=== PATIENT | female | born 1970 ===

== ENCOUNTER 2020-09-13 10:35 | Outpatient (REF) | payer BC, SELFPAY | END 2020-09-13 10:36 | disposition home or self-care (01) | LOC: HO.WFDLDS 10:35 | PROVIDERS: PCP Hospitalist; Visit Provider Internal Medicine | DX: Z20.828 Contact with and (suspected) exposure to other viral communicable diseases (principal) | CPT/HCPCS: C9803; U0003 ==

== ENCOUNTER 2023-02-01 02:18 | Inpatient (IN) | payer BC, SELFPAY ==
--- OUTSIDE RECORDS SUMMARY | 2023-02-01 02:21 | XMS_ITS | Continuity of Care Document ---
Author Name Unknown Organization [facility] Dimitri Divvyshot Parudi Address [address], [address] [place] [address]- Care Team Providers Care Business Management Manager Name Role Phone Lena SEARS, Myra Ratliff Primary Care Physician [phone] [place] [facility] [place](s): 12/28/20 - 01/04/21 [facility] [address], [address] [place] [address]- Attending Physician: Александр FRANKLIN, Mandeep Williamson Referring Physician: Myra Paredes NP Allergies, Adverse Reactions, Alerts Substance Reaction Severity Status sulfADIAZINE Active Nuts Active levoFLOXacin Active Immunizations Given and Recorded Vaccine Date Status Refusal Reason Hepatitis A Adult Vaccine 09/20/16 Given Hepatitis A Adult Vaccine 12/08/15 Given diphtheria-tetanus toxoids (DT) 12/29/98 Given Medications Ativan 0.5 mg oral tablet 0.5 tablet = 0.25 mg, By Mouth, Once, take 30 min prior to MRI procedure . may repeat dose in 45 min if needed. Do not drive after taking med/have someone else drive you, # 2 tablet, 0 Refills, Soft Stop, 12/24/17 13:58:41 EDT, Tablet Start Date: 12/24/17 Status: Ordered indomethacin 25 mg oral capsule 2 capsule = 50 mg, By Mouth, 3 times a day, PRN for gout pain, # 21 capsule, 0 Refills, Maintenance, 06/14/20 13:24:00 EDT, Capsule, [id number], 153, cm, 06/14/20 11:05:00 EDT, Height, 95, kg, 06/14/20 11:05:00 EDT, Dry Weight Start Date: 06/14/20 Status: Ordered Latuda 80 mg oral tablet 1 tablet = 80 mg, By Mouth, Daily, 0 Refills, Maintenance, 12/24/17 12:55:11 EDT Start Date: 12/24/17 Status: Ordered Mirena 52 mg intrauteral device 1 each = 52 mg, Once, Inserted 03/2016, 0 Refills, Maintenance, 12/08/15 9:44:34 Start Date: 12/08/15 Status: Ordered TEGretol 200 mg oral tablet 200 mg, 1, tablet, By Mouth, 2 times a day, Refills 0, Maintenance, 12/24/17 12:55:26 EDT Start Date: 12/24/17 Status: Ordered Problem List Condition Effective Dates Status Health Status Inform ant Abnormal weight gain(Confirmed) Active Anxiety(Confirmed) Active Bipolar 1 disorder(Confirmed) Active IUD (intrauterine device) in place(Confirmed) Active Depression(Confirmed) Active Headache(Confirmed) Active Hypercholesterolemia(Confirmed) Active Hyperglycemia(Confirmed) Active Hyperlipidemia(Confirmed) Active Joint pain(Confirmed) Active Muscular aches(Confirmed) Active Influenza vaccine needed(Confirmed) Active Obesity due to excess calories(Confirmed) Active control(Confirmed) Active Routine Gynecological Examination(Confirmed) Active Right shoulder pain(Confirmed) Active Urgency incontinence(Confirmed) Active Social History Social History Type Response Smoking Status Never smoker entered on: 04/13/16 Sex
--- OUTSIDE RECORDS SUMMARY | 2023-02-01 02:21 | XMS_ITS | Continuity of Care Document ---
Author Name Unknown Organization [facility] Medicine Address [address] [place] [address]- Care Team Providers Care Journeyman Plumber Name Role Phone Saran FRANKLIN, Nissa Larsen Primary Care Physician [phone] [place] [facility] [place] 10/13/21 [facility] Medicine [address] [place] [address]- Attending Physician: Jose Ivey MD Admitting Physician: Jose Ivey MD Referring Physician: Imani SEARS, Vandana Kee Allergies, Adverse Reactions, Alerts Substance Reaction Severity Status sulfADIAZINE Active Nuts Active levoFLOXacin Active Immunizations Given and Recorded Vaccine Date Status Refusal Reason Hepatitis A Adult Vaccine 09/20/16 Given Hepatitis A Adult Vaccine 12/08/15 Given diphtheria-tetanus toxoids (DT) 12/29/98 Given Medications aspirin 81 mg oral capsule 4 capsule = 324 mg, By Mouth, Every 4 hours, 0 Refills, Maintenance, 08/26/21 9:02:00 EST, Partial fill upon patient request if the prescription is for a schedule II opioid drug. Start Date: 08/26/21 Status: Ordered Ativan 0.5 mg oral tablet 0.5 tablet [...] 0 Refills, Maintenance, 06/14/20 13:24:00 EDT, Capsule, [facility] #[id number], 153, cm, 06/14/20 11:05:00 EDT, Height, 95, kg, 06/14/20 11:05:00 EDT, Dry Weight Start Date: 06/14/20 Status: Ordered Latuda 80 mg oral tablet 1 tablet = 80 mg, By Mouth, Daily, 0 Refills, Maintenance, 12/24/17 12:55:11 EDT Start Date: 12/24/17 Status: Ordered losartan 50 mg oral tablet 50 mg, 1, tablet, By Mouth, Daily, Refills 0, Maintenance, 08/26/21 9:03:00 EST, Partial fill upon patient request if the prescription is for a schedule II opioid drug. Start Date: 08/26/21 Status: Ordered metFORMIN 500 mg oral tablet 1 tablet = 500 mg, By Mouth, 2 times a day, # 60 tablet, 0 Refills, Maintenance, 05/31/21 18:26:00 EDT, Tablet, [facility]/pharmacy #[id number], Partial fill upon patient request if the prescription is for a schedule II opioid drug., 152.5, cm, 05/31/21 11:59:00 E... Start Date: 05/31/21 Stop Date: 06/30/21 Status: Ordered Mirena 52 mg intrauteral device 1 each = 52 mg, Once, Inserted 03/2016, 0 Refills, Maintenance, 12/08/15 9:44:34 Start Date: 12/08/15 Status: Ordered rosuvastatin 10 mg oral capsule 1 capsule = 10 mg, By Mouth, Daily, 0 Refills, Maintenance, 08/26/21 9:02:00 EST, Partial fill uponpatient request if the prescription is for a schedule II opioid drug. Start Date: 08/26/21 Status: Ordered TEGretol 200 mg oral tablet 200 mg, 1, tablet, By Mouth, 2 times a day, Refills 0, Maintenance, 12/24/17 12:55:26 EDT Start Date: 12/24/17 Status: Ordered Problem List Condition Effective Dates Status Health Status Inform ant Abnormal weight gain(Confirmed) Active Anxiety(Confirmed) Active Bipolar 1 disorder(Confirmed) Active IUD (intrauterine device) in place(Confirmed) Active Depression(Confirmed) Active Diabetes(Confirmed) Active Headache(Confirmed) Active Hypercholesterolemia(Confirmed) Active Hyperglycemia(Confirmed) Active Hyperlipidemia(Confirmed) Active Irregular uterine bleeding(Confirmed) Active Joint pain(Confirmed) Active Muscular aches(Confirmed) Active Influenza vaccine needed(Confirmed) Active Obesity due to excess calories(Confirmed) Active control(Confirmed) Active Routine Gynecological Examination(Confirmed) Active Severe obesity(Confirmed) Active Right shoulder pain(Confirmed) Active Urgency incontinence(Confirmed) Active Social History Social History Type Response Smoking Status Never smoker entered on: 04/13/16 Sex
--- OUTSIDE RECORDS SUMMARY | 2023-02-01 02:21 | XMS_ITS | Continuity of Care Document ---
Author Name Unknown Organization [facility] [place] Address [address] [place] [address]- Care Team Providers Care Storm Chaser Name Role Phone Nissa Noonan MD Primary Care Physician Encounter 09/30/21 - 10/07/21 [facility] [place] [address], [address] [place] [address]- Attending Physician: Nissa Noonan MD Admitting Physician: Nissa Noonan MD Referring Physician: Nissa Noonan MD Allergies, Adverse Reactions, Alerts Substance Reaction Severity [...] 0 Refills, Maintenance, 06/14/20 13:24:00 EDT, Capsule, [facility] #[id number], 153, cm, 06/14/20 11:05:00 EDT, Height, 95, [...] 0 Refills, Maintenance, 05/31/21 18:26:00 EDT, Tablet, [facility]/pharmacy #[id number], Partial fill upon patient request if [...]
--- OUTSIDE RECORDS SUMMARY | 2023-02-01 02:21 | XMS_ITS | Continuity of Care Document ---
Author Name Unknown Organization [facility] ter Address [address] [place] [address]- Care Team Providers Care Brood Station Manager Name Role Phone Nissa Noonan MD Primary Care Physician [phone] [place] [facility] [place] - 01/01/[address] [address] Allergies, Adverse Reactions, Alerts Substance Reaction Severity [...] 0 Refills, Maintenance, 06/14/20 13:24:00 EDT, Capsule, [facility] #[id number], 153, cm, 06/14/20 11:05:00 EDT, Height, 95, kg, 06/14/20 11:05:00 EDT, Dry Weight Start Date: 06/14/20 Status: Ordered Latuda 80 mg oral tablet 1 tablet = 80 mg, By Mouth, Daily, 0 Refills, Maintenance, 12/24/17 12:55:11 EDT Start Date: 12/24/17 Status: Ordered Liletta 52 mg intrauterine device 1 each = 52 mg, Once, 0 Refills, Maintenance, 10/18/21 11:53:00 EST, Partial fill upon patient request if the prescription is for a schedule II opioid drug. Start Date: 10/18/21 Status: Ordered losartan 50 mg oral tablet [...] 0 Refills, Maintenance, 05/31/21 18:26:00 EDT, Tablet, [facility]/pharmacy #[id number], Partial fill upon patient request if [...]
--- OUTSIDE RECORDS SUMMARY | 2023-02-01 02:21 | XMS_ITS | Continuity of Care Document ---
Author Name Unknown Organization [facility] [employer]ion [employer] Address [address], 4[address] [place] [address]- Care Team Providers Care Melon Packer Name Role Phone Lena SEARS, Myar Ratliff Primary Care Physician [phone] En[place] [facility] [place] Date(s): 12/28/20 - 01/27/21 [facility] [employer] [facility] [address] [place] [address]- Attending Physician: Castillo Guevara Admitting Physician: Castillo Guevara Referring Physician: AdmtrCastillo Allergies, Adverse Reactions, Alerts Substance Reaction Severity [...] 0 Refills, Maintenance, 06/14/20 13:24:00 EDT, Capsule, [facility] #[id number], 153, cm, 06/14/20 11:05:00 EDT, Height, 95, [...]
--- OUTSIDE RECORDS SUMMARY | 2023-02-01 02:21 | XMS_ITS | Continuity of Care Document ---
Author Name Unknown Organization [facility] [place] Address [address] [facility] [place] [address]- Care Team Providers Care Breaker Hand Name Role Phone Nissa Noonan MD Primary Care Physician [phone] Encounter 06/20/21 - 09/03/21 [facility] [address], [address] [place] [address]- Attending Physician: Nissa Noonan MD Admitting Physician: [...] EDT, Tablet Start Date: 12/24/17 Status: Ordered Flagyl 500 mg oral tablet 1 tablet = 500 mg, By Mouth, 3 times a day, for 7 days, # 21 tablet, 0 Refills, Acute 09/06/21 13:04:00 EST, 08/30/21 13:04:00 EST, Tablet, [facility]/pharmacy #[id number], Partial fill upon patient request if the prescription is for a schedule II opioid drug., 15... Start Date: 08/30/21 Stop Date: 09/06/21 Status: Ordered indomethacin 25 mg oral capsule 2 capsule = 50 mg, By Mouth, 3 times a day, PRN for gout pain, # 21 capsule, 0 Refills, Maintenance, 06/14/20 13:24:00 EDT, Capsule, [facility] #[id number], 153, cm, 06/14/20 11:05:00 EDT, Height, 95, [...] 0 Refills, Maintenance, 05/31/21 18:26:00 EDT, Tablet, [facility]/pharmacy #[id number], Partial fill upon patient request [...]
--- OUTSIDE RECORDS SUMMARY | 2023-02-01 02:21 | XMS_ITS | Continuity of Care Document ---
Author Name Unknown Organization [facility] Address [address] [facility] [place] [address]- Care Team Providers Care Shoe Singer Name Role Phone Nissa Noonan MD Primary Care Physician Encounter 09/20/21 - 09/27/21 [facility] [place] [address] [facility], [address] [place] [address]- Attending Physician: Nissa Noonan MD Admitting Physician: [...] 0 Refills, Maintenance, 06/14/20 13:24:00 EDT, Capsule, [id number], 153, cm, 06/14/20 11:05:00 EDT, Height, 95, [...] Refills, Maintenance, 05/31/21 18:26:00 EDT, Tablet, [facility]/pharmacy #[id number], Partial fill upon patient request if [...]
--- OUTSIDE RECORDS SUMMARY | 2023-02-01 02:21 | XMS_ITS | Continuity of Care Document ---
Author Name Unknown Organization [facility] Address [address] [facility] [place] [address]- Care Team Providers Care Lithographic Press Operator Name Role Phone Nissa Noonan MD Primary Care Physician Encounter 11/08/22 - 12/21/22 [facility] [place] [address], [address] [place] [address]- Attending Physician: Александр FRANKLIN, Mandeep Williamson Admitting Physician: Александр FRANKLIN, Mandeep Williamson Referring Physician: Александр FRANKLIN, Mandeep Williamson Allergies, Adverse Reactions, Alerts Substance Reaction Severity [...] EDT, Tablet Start Date: 12/24/17 Status: Ordered Latuda 80 mg oral tablet [...] Refills, Maintenance, 05/31/21 18:26:00 EDT, Tablet, [facility]/pharmacy #[id number], Partial fill upon patient request if [...] Date: 12/24/17 Status: Ordered Problem List Condition Confirmation Course Effective Dates Status Health Status Informant Abnormal weight gain Confirmed Active Anxiety Confirmed Active Bipolar 1 disorder Confirmed Active IUD (intrauterine device) in place Confirmed Active Depression Confirmed Active Diabetes Confirmed Active Headache Confirmed Active Hypercholesterolemia Confirmed Active Hyperglycemia Confirmed Active Hyperlipidemia Confirmed Active Irregular uterine bleeding Confirmed Active Joint pain Confirmed Active Muscular aches Confirmed Active Influenza vaccine needed Confirmed Active Obese class II Confirmed Active Obesity due to excess calories Confirmed Active control Confirmed Active Routine Gynecological Examination Confirmed Active Right shoulder pain Confirmed Active Urgency incontinence Confirmed Active Social History Social History Type Response Smoking Status Never smoker entered on: 04/13/16 Sex Patient Care team information Care Team Personnel Name: Nissa Noonan MD Position: [facility] Outreach Member Role: PCP Address: Address: [address] [place] [address]- [place] Name: Александр FRANKLIN, Mandeep Williamson Position: [facility] OPERATIONS MANAGER ASSISTANT Member Role: Lifetime OPERATIONS MANAGER ASSISTANT Physician Address: Address: [address] [place] [address]'s [facility] [place] [address]- Care Team Related Persons Name: [address] Address: [place] [address] Name: ROBB NIXON Address: home [address], [address] [place] [address] Name: GLENN THOMAS Address: home [address] [place] [address]
--- OUTSIDE RECORDS SUMMARY | 2023-02-01 02:21 | XMS_ITS | Continuity of Care Document ---
Author Name Unknown Organization [facility] [place] Address [address] [facility] [place] [address]- Care Team Providers Care Derrick Boat Lever Operator Name Role Phone Nissa Noonan MD Primary Care Physician [phone] Encounter 09/19/21 - 10/20/21 [facility] [place] [address], [address] [place] [address]- Attending Physician: Nissa Noonan MD Admitting Physician: [...] 0 Refills, Maintenance, 06/14/20 13:24:00 EDT, Capsule, [facility][id number], 153, cm, 06/14/20 11:05:00 EDT, Height, 95, [...] 0 Refills, Maintenance, 05/31/21 18:26:00 EDT, Tablet, [facility]/pharmacy #[id number], Partial fill upon patient request if [...]
--- OUTSIDE RECORDS SUMMARY | 2023-02-01 02:21 | XMS_ITS | Continuity of Care Document ---
Author Name Unknown Organization [facility] Medicine Address [address] [place] [address]- Care Team Providers Care Fur Ironer Name Role Phone Saran FRANKLIN, Nissa Larsen Primary Care Physician En[place] [facility] [place] Date(s): 09/13/21 - 10/13/21 [facility] Medicine [address] [place] [address]- Attending Physician: Castillo Guevara Admitting Physician: Castillo [...] 0 Refills, Maintenance, 06/14/20 13:24:00 EDT, Capsule, [id number], 153, cm, 06/14/20 11:05:00 EDT, Height, 95, [...] 0 Refills, Maintenance, 05/31/21 18:26:00 EDT, Tablet, [id number], Partial fill upon patient request if [...]
--- OUTSIDE RECORDS SUMMARY | 2023-02-01 02:21 | XMS_ITS | Continuity of Care Document ---
Author Name Unknown Organization [facility] Medicine Address [address] [place] [address]- Care Team Providers Care Senior Medical Transcriptionist Name Role Phone Saran FRANKLIN, Nissa Larsen Primary Care Physician [phone] En[place] [facility] [place] Date(s): 06/01/21 - 07/01/21 [facility] Medicine [address] [place] [address]- Allergies, Adverse Reactions, Alerts Substance Reaction Severity [...] 0 Refills, Maintenance, 06/14/20 13:24:00 EDT, Capsule, [facility] #[id number], 153, cm, 06/14/20 11:05:00 EDT, Height, 95, kg, 06/14/20 11:05:00 EDT, Dry Weight Start Date: 06/14/20 Status: Ordered Latuda 80 mg oral tablet 1 tablet = 80 mg, By Mouth, Daily, 0 Refills, Maintenance, 12/24/17 12:55:11 EDT Start Date: 12/24/17 Status: Ordered metFORMIN 500 mg oral tablet 1 tablet = 500 mg, By Mouth, 2 times a day, # 60 tablet, 0 Refills, Maintenance, 05/31/21 18:26:00 EDT, Tablet, [facility]/pharmacy #[id number], Partial fill upon patient [...]
--- NOTE | 2023-02-01 03:07 | PC.NURSE ---
PT SIGNED A 3 DAY NOTICE ON Sunday02/01/23. UP ON Sunday02/06/23.
[2023-02-01 03:44] VITALS: BMI 30.2
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
--- NOTE | 2023-02-01 06:43 | HE.PHANOTE ---
Addendum entered by Sagar Pantoja formerly [facility] 02/02/23 13:54: PT NOT ON LATUDA ANYMORE Original Note: RE METFORMIN PATIENT DOES HAVE METFORMIN 500MG ON THEIR FILE, BID
[2023-02-01 07:00] VITALS: BMI 42.6
[2023-02-01 08:10] VITALS: BP 192/94; PULSE 92; RESP 18; TEMP 35.9; O2SAT 94
[2023-02-01] MEDS: metFORMIN HCl 1,000 MG TABLET 1000 MG PO ×2 (08:16→19:59)
[2023-02-01] MEDS: Aspirin Enteric Coated 81 MG TABLET.DR PO (08:16)
[2023-02-01] MEDS: carBAMazepine 200 MG TABLET PO (08:16)
--- NOTE | 2023-02-01 09:00 | ECG_ITS ---
Test Reason : dr order Blood Pressure : / mmHG Vent. Rate : 066 BPM Atrial Rate : 066 BPM P-R Int : 144 ms QRS Dur : 080 ms QT Int : 394 ms P-R-T Axes : 040 033 072 degrees QTc Int : 413 ms Normal sinus rhythm Nonspecific T wave abnormality Abnormal ECG No previous ECGs available Referred By: Lorraine Souza Electronically Signed By:Igor Lucia
[2023-02-01] MEDS: Losartan Potassium 50 MG TABLET PO (11:07)
[2023-02-01] MEDS: Butalb/Acetamin/Caff 50/325/40 TABLET 1 TAB PO (11:08)
[2023-02-01] MEDS: OLANZapine 5 MG TABLET PO (11:08)
--- NOTE | 2023-02-01 11:32 | P.CONHOSP_ITS ---
History of Present Illness Data of Consult Service Date: 02/01/23 Primary Care Provider: Unknown Physician HPI Reason for consult: Admission H&P Pt is a 52-year-old female with a PMH significant for?nephrolithiasis, non insulin-dependent diabetes type 2, HTN, HLD, and bipolar disorder who is admitted to [facility] psychiatry unit for increasing depression and SI with intentional overdose of 16 tablets of lorazepam after a break-up with her boyfriend. Medical consult for admission H&P. ?Patient states that she has no acute medical concerns at this time. Denies headache, vision changes, fever, chills, nausea, vomiting. No chest pain/pressure, palpitations. No shortness of breath, denies abdominal pain. Review of Systems Review of Systems: Patient has no acute medical complaints at this time Yes all other systems are reviewed and are negative [facility] Medical History (Updated 02/01/23 @ 18:47 by MARIO Bentley) Bipolar disorder Surgical History (Updated 02/01/23 @ 18:45 by MARIO Bentley) Hx laparoscopic cholecystectomy Social History Household Members: Spouse, Significant Other and Children Household Members Other:: DAUGHTER, BOY FRIEND, AND Housing: House Do you presently have visiting nurse or other home services: No Patient Tobacco Use Status: Never used Tobacco Smoked in Last 30 Days: No e-Cigarette/Vaping Use: Never Used Patient Interested in Nicotine Replacement: No Patient Given Instructions on How to Stop Smoking: No Second Hand Smoke Exposure: No Use of substances other than those prescribed or required for medical reasons: No Currently Displaying Signs/Symptoms of Drug Intoxication Withdrawal: No Any prior treatment program specific to substance use: No Do you feel safe in your current relationship?: Yes Is there a partner from a previous relationship who is making you feel unsafe now?: No Are you made to feel afraid or neglected: No Advance Directives: No Advance Directives Information Provided: No Do you have thoughts of harming others: None Do you have a plan to hurt others: No Plan Recently lost weight without trying: No Eating poorly because of decreased appetite: No Nutrition Risks: No Nutritional Risk Patient : No : No Poor oral hygiene: No service: No Sexual orientation: Straight/Heterosexual Meds Allergies Allergy/AdvReac Type Severity Reaction Status Date / Time Sulfa (Sulfonamide Allergy Severe rash Verified 09/21/20 12:56 Antibiotics) levofloxacin [From Levaquin] Allergy rash Verified 09/21/20 12:56 nut - unspecified Allergy Unknown Verified 02/01/23 03:12 Active Medications: Current Medications Acetaminophen (Acetaminophen 325 Mg Tablet) 650 mg PO Q6H PRN PRN Reason: Headache/Pain Mild Scale (1-3) Al Hydroxide/Mg Hydroxide (Magnesium Hydrox/Alum Hydrox 30 Ml Oral.Susp) 30 ml PO Q6H PRN PRN Reason: Heartburn/Nausea Aspirin (Aspirin Enteric Coated 81 Mg Tablet.Dr) 81 mg PO DAILY COUNT INCLUDES [facility] Last Admin: 02/01/23 08:16 Dose: 81 mg Atorvastatin Calcium (Atorvastatin Calcium 40 Mg Tablet) 40 mg PO BEDTIME COUNT INCLUDES THE [facility] Cariprazine (Cariprazine Hcl 3 Mg Capsule) 3 mg PO DAILY COUNT INCLUDES THE [facility] Hydroxyzine HCl (Hydroxyzine Hcl 25 Mg Tablet) 25 mg PO Q6H PRN PRN Reason: Anxiety Lamotrigine (Lamotrigine 25 Mg Tablet) 25 mg PO BID COUNT INCLUDES [facility] Losartan Potassium (Losartan Potassium 50 Mg Tablet) 50 mg PO DAILY COUNT INCLUDES THE [facility]; Protocol Last Admin: 02/01/23 11:07 Dose: 50 mg Magnesium Hydroxide (Milk Of Magnesia 30 Ml Oral.Susp) 30 ml PO DAILY PRN PRN Reason: Constipation Metformin HCl (Metformin Hcl 1,000 Mg Tablet) 1,000 mg PO BID COUNT INCLUDES [facility] Last Admin: 02/01/23 08:16 Dose: 1,000 mg Nicotine Polacrilex (Nicotine Polacrilex 2 Mg Gum) 2 mg BUCCAL Q2H PRN PRN Reason: Nicotine Cravings Olanzapine (Olanzapine 5 Mg Tablet) 5 mg PO Q4H PRN PRN Reason: william, agitation Trazodone HCl (Trazodone Hcl 50 Mg Tablet) 50 mg PO BEDTIME MRX1 PRN PRN Reason: Insomnia Home Medications Medication Instructions Recorded Confirmed Last Taken Type aspirin 81 mg capsule 81 mg PO DAILY 02/01/23 02/01/23 Unknown History carbamazepine 200 mg tablet 200 mg PO BID 02/01/23 02/01/23 Unknown History (Tegretol) losartan 50 mg tablet 50 mg PO DAILY 02/01/23 02/01/23 Unknown History lurasidone 80 mg tablet (Latuda) 80 mg PO DAILY 02/01/23 02/01/23 Unknown History metformin 500 mg tablet 500 mg PO BID 02/01/23 02/01/23 Unknown History rosuvastatin 10 mg sprinkle capsule 10 mg PO DAILY 02/01/23 02/01/23 Unknown History Physical Exam Vital Signs and Narrative: Vital Signs: Last Vital Signs Temp 96.6 F L 02/01/23 08:10 Pulse 92 02/01/23 08:10 Resp 18 02/01/23 08:10 BP 192/94 H 02/01/23 08:10 Pulse Ox 94 02/01/23 08:10 O2 Del Method Room Air 02/01/23 08:10 BMI result Body Mass Index 30.2 Constitutional: Alert, in no acute distress. Mental Status: Oriented to person, place and time. Eyes: Pupils are equal, round, and reactive to light. Ear, Nose, and Throat: Oropharynx clear, mucous membranes moist. Ears and nose without deformities. Trachea midline. Respiratory: Clear to auscultation bilaterally. No wheezing, rales, or rhonchi. Cardiovascular: S1, S2 regular. No murmurs, rubs, or gallops. Gastrointestinal: Abdomen soft, non-tender, non-distended. Normal bowel sounds. Neurologic: Cranial nerves II-XII are grossly intact bilaterally. No focal neurological deficits. Moves all extremities spontaneously. Skin: No rashes or lesions noted. Musculoskeletal: No cyanosis or clubbing. Extremities: No edema. Psychiatric: Normal mood and affect. Assessment and Plan (1) Well adult exam: Status: Acute Plan Pt is a 52-year-old female with a PMH significant for?nephrolithiasis, non insulin-dependent diabetes type 2, HTN, HLD, and bipolar disorder who is admitted to [facility] psychiatry unit for increasing depression and SI with intentional overdose of 16 tablets of lorazepam after a break-up with her boyfriend. Medical consult for admission H&P. ?Patient states that she has no acute medical concerns at this time. Mood disorder Plan as per Psychiatry HTN Continue losartan Qcm-icwaicl-tdinmwons diabetes type 2 Continue metformin Diabetic diet HLD Continue statin Thank you for allowing us to participate in the care of this patient. Signing off at this time. Please let us know if there are any acute complaints or questions. Time Spent With Patient Time: Total time managing care of this patient today ____ minutes.
--- NOTE | 2023-02-01 13:49 | HO.PSYADMNOT ---
HPI Date of Service: 02/01/23 Chief Complaint: Bipolar D/O Sources of Information: patient interviewed, chart reviewed and crisis/core team assessment reviewed HPI Subjective Notes: Bowser Warning, Conditional Voluntary and 3 Day Healthcare Proxy: No Guardianship: No Medical Problems Affecting Mental Status: No Narrative: 52 yo female, history of bipolar disorder, s/p overdose of Lorazepam 8-14 tabs of a 5 year old prescription. Pt sent from [facility] [place]. She begins our meeting by saying she has bipolar disorder and needs to be back on medicine. There are several significant stressors. Pt lives with her partner, Damir, her ex-, Jared and her daughter, age 22 who is there on a temporary basis as she has an open wound that pt is helping her care for which is healing well she reports. Her dog has IDDM and requires insulin BID. She reports she needs to get a restraining order on her partner and begin his eviction process as he is severely addicted for crack and unwilling to get treatment. 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 She asks to discharge today, citing feeling anger and overwhelmed when she overdosed at all of the current stressors. Past Psychiatric History: IP: [place]- 3 days about 12 years ago. Did PHP after discharge OP: No current providers. Hx of [facility] Trials: Latuda, Tegretol SA: 10 years ago, drank and threatened to cut herself with a knife, but did not cut. 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 [place] HTN High cholesterol s/p renal calculi migraine hx Narrative: s/p cholecystectomy s/p renal calculi Family History: Bipolar, PTSD, Anxiety Social History: Born in [place]. Two sisters. to Jared, now but they live together. Boyfriend Damir lives with pt Jared and pts daughter, Capri, age 22. Damir is addicted to crack and has spent the first 1.5 years of their 3 year relationship in group home High school graduate. Certificates in EKG and phlebotomy. Currently not working Substance History: Marijuana edible on occasion for sleep Trauma History: Affirms Diagnostics Vital Signs (24Hr): Vital Signs - 24 hr 02/01/23 08:10 Temperature 96.6 F L Pulse Rate 92 Respiratory Rate 18 Blood Pressure 192/94 H Pulse Oximetry 94 Oxygen Delivery Method Room Air BMI result Body Mass Index 42.6 Meds/Allergies Meds Home Medications Medication Instructions Recorded Confirmed Type aspirin 81 mg capsule 81 mg PO DAILY 02/01/23 02/01/23 History carbamazepine 200 mg tablet 200 mg PO BID 02/01/23 02/01/23 History (Tegretol) losartan 50 mg tablet 50 mg PO DAILY 02/01/23 02/01/23 History lurasidone 80 mg tablet (Latuda) 80 mg PO DAILY 02/01/23 02/01/23 History metformin 500 mg tablet 500 mg PO BID 02/01/23 02/01/23 History rosuvastatin 10 mg sprinkle capsule 10 mg PO DAILY 02/01/23 02/01/23 History Allergies Allergies Allergy/AdvReac Type Severity Reaction Status Date / Time Sulfa (Sulfonamide Allergy Severe rash Verified 09/21/20 12:56 Antibiotics) levofloxacin [From Levaquin] Allergy rash Verified 09/21/20 12:56 nut - unspecified Allergy Unknown Verified 02/01/23 03:12 Mental Status Exam Mental Status Exam Patient Appearance: Appropriate Patient Orientation: Person, Place, Time and Situation Level of Consciousness: Alert Patient Behavior: Talkative and Good Eye Contact Mood Description: Depressed Affect Description: Labile Patient Cognition Impaired: No Ability to Follow Directions: Good Speech Pattern: Spontaneous Speech Memory Description: Intact Hallucinations: None Delusions: Not Present Perceptual Disturbances: Depersonalization and Derealization Thought Process: Rumination Thought Content: positive for Circumstantial, positive for Perseveration and positive for Suicidal Ideation (denies) Depressive Symptoms: Increased Anxiety, Increased Irritability, Crying Spells and Thoughts of /Suicide (denies) Abnormal Motor Activity Signs and Symptoms: Restlessness Judgement: Fair Assessment & Plan Assessment & Plan (1) Bipolar disorder: Status: Acute Code(s): F31.9 - Bipolar disorder, unspecified Plan 52 yo female, 12 year hx of bipolar disorder, with several current stressors, s/p OD of Lorazepam~ 8-14 tabs of a 5 year old prescription. Pt has signed a three day notice of intent. She would like to re-start medicine for bipolar disorder, asks for referrals, asks for help in beginning to fill out a restraining order for her partner, Damir as he is crack addicted and currently lost in his addictive illness. She denies SI, HI. She has no sx of psychosis however presents with some hypomania and insomnia. Plan: Fiorcet x 1 dose for migraine Vraylar 3 mg daily Lamictal 25 mg bid Olanzapine 5 mg x 1 dose Olanzapine 5 mg q 4 h prn william Discontinue Tegretol, Latuda-reports non compliance B12, Folate, Lipid Panel, A1C EKG Aftercare planning with pt Family work prior to discharge? Patient educated on: diagnosis, medication risk/benefits and therapeutic strategies Informed Consent: understands Reason for continued inpatient stay Substantial Risk for: harm to self, inability to function and med/psych decompensation Statement Statement: I have reviewed the history and physical and performed a pertinent examination on my patient. No changes have occurred unless specified. If the History and Physical was not performed prior to admission, the Hospitalist's service will be consulted for completing the admission physical. Time Spent With Patient Time: Total time managing care of this patient today ____ minutes.
[2023-02-01 16:58] VITALS: BP 156/86; PULSE 88; RESP 16; TEMP 36.4; O2SAT 95
[2023-02-01] MEDS: Acetaminophen 325 MG TABLET 650 MG PO (19:59)
[2023-02-01] MEDS: lamoTRIgine 25 MG TABLET PO (19:59)
[2023-02-01] MEDS: Atorvastatin Calcium 40 MG TABLET PO (19:59)
--- NOTE | 2023-02-01 20:50 | PC.NURSE ---
Pt reports headache and dizziness, Pt vitals and POC within normal limit. house calls nurse practitioner provider, Fitz notified, POC order given. PRN tylenol given for headache with positive effect.
[2023-02-02 01:10] LABS: Glucose, Whole Blood 150 mg/dL (60-115)
[2023-02-02 08:13] LABS: Estimated Average Glucose 131 mg/dL; Hemoglobin A1c % 6.2 %
[2023-02-02 08:18] LABS: Creatinine Clr Calc Pharmacy 76.8; Estimated Glomerular Filt Rate > 60
[2023-02-02 08:25] LABS: Alanine Aminotransferase 17 U/L (0-31); Albumin Level 4.3 g/dL (3.5-5.0); Alkaline Phosphatase 115 U/L (39-117); Anion Gap 13 (12-20); Aspartate Amino Transferase 17 U/L (5-31); Bilirubin Total 0.9 mg/dL (0.0-1.0); Blood Urea Nitrogen 14 mg/dL (9-16); Calcium 9.8 mg/dL (8.4-10.2); Carbon Dioxide 28 mmol/L (22-29); Chloride 106 mmol/L (96-108); Cholesterol 276 mg/dL; Creatinine Clr Calc Pharmacy 76.8; Estimated Glomerular Filt Rate > 60; Glucose Fasting 135 mg/dL (60-99); HDL Cholesterol 41 mg/dL; LDL Cholesterol Calculated 199 mg/dl; Potassium 4.5 mmol/L (3.3-5.1); Sodium 142 mmol/L (135-145); Total Protein 7.3 g/dL (6.5-8.0); Triglycerides 184 mg/dL
[2023-02-02 08:55] LABS: Free T4 (Free Thyroxine) 1.06 ng/dL (0.71-1.85); Thyroid Stimulating Hormone 0.71 uIU/mL (0.32-4.0); Vitamin B12 245 pg/mL (200-900)
[2023-02-02 08:57] LABS: Folate 13.7 ng/mL (> or = 4.0); Vitamin B12 280 pg/mL (200-900)
[2023-02-02 09:20] VITALS: BP 152/80; PULSE 71; RESP 16; TEMP 36.6; O2SAT 99
[2023-02-02] MEDS: Acetaminophen 325 MG TABLET 650 MG PO ×2 (09:22→19:18)
[2023-02-02] MEDS: Aspirin Enteric Coated 81 MG TABLET.DR PO (09:22)
[2023-02-02] MEDS: Losartan Potassium 50 MG TABLET PO (09:23)
[2023-02-02] MEDS: metFORMIN HCl 1,000 MG TABLET 1000 MG PO ×2 (09:23→20:02)
[2023-02-02] MEDS: lamoTRIgine 25 MG TABLET PO ×2 (09:23→20:02)
--- NOTE | 2023-02-02 10:09 | HO.PSYCHPN ---
Subjective Subjective Date of Service: 02/02/23 Reason For Visit: Bipolar D/O Subjective Notes: Conditional Voluntary and 3 Day Healthcare Proxy: No Guardianship: No Medical Problems Affecting Mental Status: No Interim History: Reviewed in team. Much improved today. Tolerating new regime without adversities. Reviewed precipitants to admission with tw and Lawrence Mccloud CRUISE COUNSELOR Reports feeling more empowered to make the changes she needs to make. No SI/HI, psychosis, mood is mildly elevated without sx of william Planning discharge 02/04. To file restraining order 02/05. Discussed setting some limits with family as well. Participating in the milieu. Medication Compliance: Yes Side effects from medications: No Attending Groups: Yes Review of Systems Acute medical concerns: No Medical Review of Systems: unchanged Mental Status Exam Mental Status Exam Patient Appearance: Appropriate Patient Orientation: Person, Place, Time and Situation Level of Consciousness: Alert Patient Behavior: Talkative and Good Eye Contact Mood Description: Appropriate and Expansive (mild) Affect Description: Appropriate Patient Cognition Impaired: No Ability to Follow Directions: Good Speech Pattern: Spontaneous Speech Memory Description: Intact Hallucinations: None Delusions: Not Present Thought Process: Goal Oriented Thought Content: positive for Circumstantial, positive for Goal Oriented and positive for Suicidal Ideation (denies) Depressive Symptoms: Thoughts of /Suicide (denies) and Low Self Esteem (gaining strength she reports) Judgement: Good Diagnostics Vital Signs (24Hr): Vital Signs - 24 hr 02/01/23 16:58 Temperature 97.6 F Pulse Rate 88 Respiratory Rate 16 Blood Pressure 156/86 H Pulse Oximetry 95 Oxygen Delivery Method Room Air BMI result Body Mass Index 42.6 Labs 02/02/23 07:43 Labs: Laboratory Results - last 48 hr 02/01/23 02/02/23 02/02/23 19:32 07:43 07:43 Sodium 142 Potassium 4.5 Chloride 106 Carbon Dioxide 28 Anion Gap 13 BUN 14 Creatinine 0.86 Estim Creat Clear Calc 76.8 Estimated GFR > 60 POC Glucose 150 H Fasting Glucose 135 H Estimat Average Glucose 131 Hemoglobin A1c % 6.2 Calcium 9.8 Total Bilirubin 0.9 AST 17 ALT 17 Alkaline Phosphatase 115 Total Protein 7.3 Albumin 4.3 Triglycerides 184 Cholesterol 276 LDL Cholesterol, Calc 199 HDL Cholesterol 41 Vitamin B12 245 Folate 13.0 TSH 0.71 Free T4 1.06 05/19/23 05/19/23 07:43 07:43 Sodium Potassium Chloride Carbon Dioxide Anion Gap BUN Creatinine 0.86 Estim Creat Clear Calc 76.8 Estimated GFR > 60 POC Glucose Fasting Glucose Estimat Average Glucose Hemoglobin A1c % Calcium Total Bilirubin AST ALT Alkaline Phosphatase Total Protein Albumin Triglycerides Cholesterol LDL Cholesterol, Calc HDL Cholesterol Vitamin B12 280 Folate 13.7 TSH Free T4 Medications Medications Current Medications Acetaminophen (Acetaminophen 325 Mg Tablet) 650 mg PO Q6H PRN PRN Reason: Headache/Pain Mild Scale (1-3) Last Admin: 02/02/23 09:22 Dose: 650 mg Al Hydroxide/Mg Hydroxide (Magnesium Hydrox/Alum Hydrox 30 Ml Oral.Susp) 30 ml PO Q6H PRN PRN Reason: Heartburn/Nausea Aspirin (Aspirin Enteric Coated 81 Mg Tablet.Dr) 81 mg PO DAILY [facility] Last Admin: 02/02/23 09:22 Dose: 81 mg Atorvastatin Calcium (Atorvastatin Calcium 40 Mg Tablet) 40 mg PO BEDTIME [facility] Last Admin: 02/01/23 19:59 Dose: 40 mg Cariprazine (Cariprazine Hcl 3 Mg Capsule) 3 mg PO DAILY [facility] Hydroxyzine HCl (Hydroxyzine Hcl 25 Mg Tablet) 25 mg PO Q6H PRN PRN Reason: Anxiety Lamotrigine (Lamotrigine 25 Mg Tablet) 25 mg PO BID [facility] Last Admin: 02/02/23 09:23 Dose: 25 mg Losartan Potassium (Losartan Potassium 50 Mg Tablet) 50 mg PO DAILY [facility]; Protocol Last Admin: 02/02/23 09:23 Dose: 50 mg Magnesium Hydroxide (Milk Of Magnesia 30 Ml Oral.Susp) 30 ml PO DAILY PRN PRN Reason: Constipation Metformin HCl (Metformin Hcl 1,000 Mg Tablet) 1,000 mg PO BID [facility] Last Admin: 02/02/23 09:23 Dose: 1,000 mg Nicotine Polacrilex (Nicotine Polacrilex 2 Mg Gum) 2 mg BUCCAL Q2H PRN PRN Reason: Nicotine Cravings Olanzapine (Olanzapine 5 Mg Tablet) 5 mg PO Q4H PRN PRN Reason: william, agitation Trazodone HCl (Trazodone Hcl 50 Mg Tablet) 50 mg PO BEDTIME MRX1 PRN PRN Reason: Insomnia Allergies Allergies Allergy/AdvReac Type Severity Reaction Status Date / Time Sulfa (Sulfonamide Allergy Severe rash Verified 09/21/20 12:56 Antibiotics) levofloxacin [From Levaquin] Allergy rash Verified 09/21/20 12:56 nut - unspecified Allergy Unknown Verified 02/01/23 03:12 Assessment & Plan Assessment & Plan (1) Bipolar disorder: Status: Acute Code(s): F31.9 - Bipolar disorder, unspecified Plan 02/02/23: Continue current regime Tentative discharge for 02/04/23. Patient educated on: medication risk/benefits and therapeutic strategies Informed Consent: understands Reason for continued inpatient stay Substantial Risk for: harm to self and rapid decompensation Time Spent With Patient Time: Total time managing care of this patient today ____ minutes.
[2023-02-02] MEDS: Milk of Magnesia 30 ML ORAL.SUSP PO (11:54)
[2023-02-02] MEDS: Cariprazine HCl 3 MG CAPSULE PO (11:54)
[2023-02-02 19:54] VITALS: BP 120/68; PULSE 75; TEMP 36.3
[2023-02-02] MEDS: Atorvastatin Calcium 40 MG TABLET PO (20:02)
--- NOTE | 2023-02-03 08:56 | P.PNPSI_ITS ---
Subjective Subjective Date of Service: 02/03/23 Reason For Visit: Bipolar D/O Subjective Notes: Conditional Voluntary and 3 Day Interim History: Met with pt and reviewed in team Plans discharge tomorrow. Tolerating meds, however with vomiting when taken on an empty stomach-education provided. Reviewed plans to file restraining order on partner. Reviewed plans on limit setting with her mother. Mental Status Exam Mental Status Exam Patient Appearance: Appropriate Patient Orientation: Person, Place, Time and Situation Level of Consciousness: Alert Patient Behavior: Talkative and Good Eye Contact Mood Description: Appropriate Affect Description: Appropriate Patient Cognition Impaired: No Ability to Follow Directions: Good Speech Pattern: Spontaneous Speech Memory Description: Intact Hallucinations: None Delusions: Not Present Thought Process: Goal Oriented Thought Content: positive for Circumstantial, positive for Goal Oriented and positive for Suicidal Ideation (denies) Depressive Symptoms: Thoughts of /Suicide (denies) and Low Self Esteem (gaining strength she reports) Judgement: Good Diagnostics Vital Signs (24Hr): Vital Signs - 24 hr 02/02/23 09:20 02/02/23 19:54 Temperature 97.8 F 97.4 F Pulse Rate 71 75 Respiratory Rate 16 Blood Pressure 152/80 H 120/68 Pulse Oximetry 99 Oxygen Delivery Method Room Air BMI result Body Mass Index 42.6 Labs 02/02/23 07:43 Labs: Laboratory Results - last 48 hr 02/01/23 02/02/23 02/02/23 19:32 07:43 07:43 Sodium 142 Potassium 4.5 Chloride 106 Carbon Dioxide 28 Anion Gap 13 BUN 14 Creatinine 0.86 Estim Creat Clear Calc 76.8 Estimated GFR > 60 POC Glucose 150 H Fasting Glucose 135 H Estimat Average Glucose 131 Hemoglobin A1c % 6.2 Calcium 9.8 Total Bilirubin 0.9 AST 17 ALT 17 Alkaline Phosphatase 115 Total Protein 7.3 Albumin 4.3 Triglycerides 184 Cholesterol 276 LDL Cholesterol, Calc 199 HDL Cholesterol 41 Vitamin B12 245 Folate 13.0 TSH 0.71 Free T4 1.06 02/02/23 02/02/23 07:43 07:43 Sodium Potassium Chloride Carbon Dioxide Anion Gap BUN Creatinine 0.86 Estim Creat Clear Calc 76.8 Estimated GFR > 60 POC Glucose Fasting Glucose Estimat Average Glucose Hemoglobin A1c % Calcium Total Bilirubin AST ALT Alkaline Phosphatase Total Protein Albumin Triglycerides Cholesterol LDL Cholesterol, Calc HDL Cholesterol Vitamin B12 280 Folate 13.7 TSH Free T4 Medications Medications Current Medications Acetaminophen (Acetaminophen 325 Mg Tablet) 650 mg PO Q6H PRN PRN Reason: Headache/Pain Mild Scale (1-3) Last Admin: 02/02/23 19:18 Dose: 650 mg Al Hydroxide/Mg Hydroxide (Magnesium Hydrox/Alum Hydrox 30 Ml Oral.Susp) 30 ml PO Q6H PRN PRN Reason: Heartburn/Nausea Aspirin (Aspirin Enteric Coated 81 Mg Tablet.Dr) 81 mg PO DAILY [facility] Last Admin: 02/02/23 09:22 Dose: 81 mg Atorvastatin Calcium (Atorvastatin Calcium 40 Mg Tablet) 40 mg PO BEDTIME [facility] Last Admin: 02/02/23 20:02 Dose: 40 mg Cariprazine (Cariprazine Hcl 3 Mg Capsule) 3 mg PO DAILY [facility] Last Admin: 02/02/23 11:54 Dose: 3 mg Hydroxyzine HCl (Hydroxyzine Hcl 25 Mg Tablet) 25 mg PO Q6H PRN PRN Reason: Anxiety Lamotrigine (Lamotrigine 25 Mg Tablet) 25 mg PO BID [facility] Last Admin: 02/02/23 20:02 Dose: 25 mg Losartan Potassium (Losartan Potassium 50 Mg Tablet) 50 mg PO DAILY [facility]; Protocol Last Admin: 02/02/23 09:23 Dose: 50 mg Magnesium Hydroxide (Milk Of Magnesia 30 Ml Oral.Susp) 30 ml PO DAILY PRN PRN Reason: Constipation Last Admin: 02/02/23 11:54 Dose: 30 ml Metformin HCl (Metformin Hcl 1,000 Mg Tablet) 1,000 mg PO BID [facility] Last Admin: 02/02/23 20:02 Dose: 1,000 mg Nicotine Polacrilex (Nicotine Polacrilex 2 Mg Gum) 2 mg BUCCAL Q2H PRN PRN Reason: Nicotine Cravings Olanzapine (Olanzapine 5 Mg Tablet) 5 mg PO Q4H PRN PRN Reason: william, agitation Trazodone HCl (Trazodone Hcl 50 Mg Tablet) 50 mg PO BEDTIME MRX1 PRN PRN Reason: Insomnia Allergies Allergies Allergy/AdvReac Type Severity Reaction Status Date / Time Sulfa (Sulfonamide Allergy Severe rash Verified 09/21/20 12:56 Antibiotics) levofloxacin [From Levaquin] Allergy rash Verified 09/21/20 12:56 nut - unspecified Allergy Unknown Verified 02/01/23 03:12 Assessment & Plan Assessment & Plan (1) Bipolar disorder: Status: Acute Code(s): F31.9 - Bipolar disorder, unspecified Plan 02/02/23: Continue current regime Tentative discharge for 02/04/23. 02/03/23: Continue current regime Patient educated on: medication risk/benefits and therapeutic strategies Informed Consent: understands Reason for continued inpatient stay Substantial Risk for: stable for discharge Time Spent With Patient Time: Total time managing care of this patient today ____ minutes.
[2023-02-03 09:20] VITALS: BP 122/57; PULSE 70; RESP 16; TEMP 36.1
[2023-02-03] MEDS: Losartan Potassium 50 MG TABLET PO (09:25)
[2023-02-03] MEDS: metFORMIN HCl 1,000 MG TABLET 1000 MG PO ×2 (09:25→20:51)
[2023-02-03] MEDS: Aspirin Enteric Coated 81 MG TABLET.DR PO (09:25)
[2023-02-03] MEDS: Cariprazine HCl 3 MG CAPSULE PO (09:25)
[2023-02-03] MEDS: lamoTRIgine 25 MG TABLET PO ×2 (09:25→20:51)
[2023-02-03] MEDS: Acetaminophen 325 MG TABLET 650 MG PO (10:43)
[2023-02-03 18:00] VITALS: BP 131/60; PULSE 78; TEMP 36.6; O2SAT 96
[2023-02-03] MEDS: Atorvastatin Calcium 40 MG TABLET PO (20:51)
[2023-02-03] MEDS: Ondansetron ODT 4 MG TAB.RAPDIS TRANSLINGU (20:56)
[2023-02-04 00:03] LABS: Glucose, Whole Blood 160 mg/dL (60-115)
[2023-02-04] MEDS: Ondansetron ODT 4 MG TAB.RAPDIS TRANSLINGU (09:22)
[2023-02-04 09:45] VITALS: BP 160/78; PULSE 70; RESP 16; TEMP 36.6
[2023-02-04] MEDS: lamoTRIgine 25 MG TABLET PO (09:47)
[2023-02-04] MEDS: Aspirin Enteric Coated 81 MG TABLET.DR PO (09:47)
[2023-02-04] MEDS: Losartan Potassium 50 MG TABLET PO (09:47)
[2023-02-04] MEDS: Cariprazine HCl 3 MG CAPSULE PO (09:47)
[2023-02-04] MEDS: metFORMIN HCl 1,000 MG TABLET 1000 MG PO (09:47)
--- NOTE | 2023-02-04 13:26 | PM.EVENT ---
Event Note Date of Service: 02/04/23 Event Note: Call from pt. LÓPEZ reports they did not receive her prescriptions sent on 02/03. Call to [facility]. They affirm their routing number and report they did not receive prescriptions. As a result, these were sent again at 1324. Time Spent With Patient Time: Total time managing care of this patient today ____ minutes.
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
== END 2023-02-04 10:58 | disposition home or self-care (01) | DRG 753 ==
PROVIDERS: Psychiatry & Neurology Psychiatry; Admitting Provider Psychiatry & Neurology Psychiatry; Visit Provider Clinical Nurse Specialist Psychiatric/Mental Health, Adult
DX: F31.9 Bipolar disorder, unspecified (principal); R45.851 Suicidal ideations; E11.9 Type 2 diabetes mellitus without complications; I10 Essential (primary) hypertension; E78.5 Hyperlipidemia, unspecified; Z88.2 Allergy status to sulfonamides; Z79.82 Long term (current) use of aspirin; Z79.84 Long term (current) use of oral hypoglycemic drugs; Z79.899 Other long term (current) drug therapy
CPT/HCPCS: 36415; 80053; 80061; 82565; 82607; 82746; 82947; 83036; 84439; 84443; 93005